=== PATIENT | male | born 1950 | race Two or more races ===

== ENCOUNTER 2020-03-28 20:59 | Emergency (ER) | payer MEDICARE, OTHER ==
[~2020-03-28] VITALS: Ht 188 cm; Wt 124.7 kg
[2020-03-28 21:39] VITALS: BP 137/69
[2020-03-28] MEDS ORDERED: cefTRIAXone SOD 1,000 MG VL IM ONE (22:45)
== END 2020-03-29 00:09 | disposition home or self-care (01) ==
LOC: ER 21:07
DX: S91.331A Puncture wound without foreign body, right foot, initial encounter (principal); E11.9 Type 2 diabetes mellitus without complications; I10 Essential (primary) hypertension; W50.0XXA Accidental hit or strike by another person, initial encounter; Y93.89 Activity, other specified; Y92.89 Other specified places as the place of occurrence of the external cause; Y99.8 Other external cause status
CPT/HCPCS: 73620; 96372; 99283; J0696

== ENCOUNTER → 2020-03-30 | Emergency (ER) | payer MEDICARE, OTHER ==
[~2020-03-30] VITALS: Ht 185.4 cm; Wt 124.7 kg
[2020-03-30 11:15] VITALS: BP 148/82
== END | disposition home or self-care (01) ==
LOC: ER 09:53
DX: Z48.00 Encounter for change or removal of nonsurgical wound dressing (principal)